=== PATIENT | female | born 1955 | race Hispanic/Latino ===

== ENCOUNTER 2020-08-08 16:49 | Emergency (ER) | payer OTHER ==
[2020-08-08] MEDS ORDERED: methylPREDNISolone Sod Succ/PF 125 MG/2 ML VIAL ONE (17:44)
[2020-08-08] MEDS ORDERED: Famotidine/PF 20 mg/2ml Vial ONE (17:44)
[2020-08-08] MEDS ORDERED: diphenhydrAMINE 50 MG/ML VIAL ONE (17:44)
[2020-08-08] MEDS ORDERED: Morphine 4 MG/ML VIAL ONE (18:17)
[2020-08-08] MEDS ORDERED: Ondansetron PF 4 MG/2 ML Vial ONE (18:17)
[2020-08-08 18:48] LABS: #Basophils 0.1 thou/uL (0.0-0.2); #Lymphocytes 2.1 thou/uL (1.20-3.40); #Monocytes 0.7 thou/uL (0.11-0.59); #Neutrophils 8.5 thou/uL (1.40-6.50); %Basophils 0.8 % (0.0-1.0); %Eosinophils 0.3 % (0.0-10.0); %Lymphocytes 18.4 % (21.0-51.0); %Monocytes 6.5 % (0.0-10.0); %Neutrophils 74.1 % (42.0-75.0); Hemoglobin 13.7 g/dL (12.0-16.0); Mean Corpuscular HGB CONC 34.3 g/dL (32.0-36.0); Mean Corpuscular Hemoglobin 30.4 pg (27.0-31.0); Mean Corpuscular Volume 88.7 fL (78.0-98.0); Mean Platelet Volume 7.8 fL (7.4-10.4); Platelet Count 247 thou/uL (130-400); RBC Distribution Width 12.7 % (11.5-14.5); Red Blood Cell (RBC) Count 4.51 mill/uL (4.20-5.40); White Blood Cell (WBC) Count 11.5 thou/uL (4.8-10.8)
[2020-08-08] MEDS ORDERED: Ketorolac Tromethamine 30 MG/ML VIAL ONE (19:09)
[2020-08-08] MEDS ORDERED: HYDROmorphone 0.5 MG/0.5 ML SYRINGE ONE (19:09)
[2020-08-08 19:10] LABS: Bilirubin Negative (Negative); Blood, Urine Negative (Negative); Clarity Clear (Clear); Glucose, Urine (Dipstick) Greater than 1000 mg/dL (Negative); Ketone, Urine 10 mg/dL (Negative); Leukocyte Negative Leu/uL (Negative); Nitrite Negative (Negative); Protein, Urine (Dipstick) Negative (Neg-Trace); Specific Gravity, Urine 1.016 (1.002-1.036); Urobilinogen Normal mg/dL (Less than 2); pH, Urine 6.5 (5.0-9.0)
[2020-08-08 19:10] LABS: ALT (SGPT) 31 U/L (8-55); AST (SGOT) 34 U/L (5-34); Alkaline Phosphatase 99 U/L (40-110); Anion Gap 17 mmol/L (10-20); BUN (Urea Nitrogen) 11 mg/dL (9.8-20.1); Bilirubin, Total 0.5 mg/dL (0.2-1.2); Calc. Creatinine Clearance 0 mL/min (70-130); Calcium 9.3 mg/dL (7.8-10.44); Carbon Dioxide 21 mmol/L (23-31); Chloride 102 mmol/L (98-107); Globulin 3.1 g/dL (2.4-3.5); Glucose 283 mg/dL (80-115); Potassium 4.1 mmol/L (3.5-5.1); Protein, Total 7.1 g/dL (6.0-8.3); Sodium 136 mmol/L (136-145)
--- NOTE | 2020-08-08 20:20 | CT ---
HEAD CT WITHOUT CONTRAST: 08/08/30 COMPARISON: None. HISTORY: Injury, trauma, pain. TECHNIQUE: Axial CT imaging at 5 mm intervals from vertex through skull base without contrast. FINDINGS: The visualized paranasal sinuses and mastoid air cells are well aerated. No displaced calvarial fract ure. No intracranial hemorrhage, midline shift, mass effect, or ventricular enlargement. IMPRESSION: No intracranial hemorrhage. POS: ANNETTA
--- NOTE | 2020-08-08 21:06 | CT ---
CERVICAL SPINE CT WITHOUT CONTRAST: 08/08/20 COMPARISON: None. HISTORY: Injury, trauma, pain. TECHNIQUE: Axial CT imaging at 2.5 mm intervals through the cervical spine with coronal and sagittal reformatted imaging. FINDINGS: There are moderate degenerative changes at the atlantoaxial interspace. The C1 ring, occipital condyl es, dens, and C1-2 articulation appear unremarkable. The visualized lung apices are unremarkable. Multilevel disc space narrowing, degenerative end plate change and anterior osteophyte formation note d, most prominent at C4-5, C6-7, C7-T1. Left sided facet and uncovertebral osteophyte formation prese nt at C2-3. Mild bilateral uncovertebral osteophyte formation at C4-5 and C5-6. Left sided uncoverteb ral osteophyte formation at C6-7. No acute fracture or dislocation. IMPRESSION: Multilevel cervical spine degenerative change. No acute fracture or dislocation. POS: ANNETTA
--- NOTE | 2020-08-08 21:31 | CT ---
CT CHEST, ABDOMEN AND PELVIS WITHOUT IV CONTRAST: 08/08/20 PROVIDED CLINICAL HISTORY: Trauma. FINDINGS: The heart, pericardium and great vessels are suboptimally evaluated and in the absence of IV contrast material, particularly regarding traumatic abnormality. The lungs are free of significant opacity. T here is no pleural fluid or pneumothorax apparent. There is stable noncalcified 6-7 mm left lower lo be pulmonary nodule, unchanged with respect to 08/18/18. There is reticulation of the subcutaneous graciela pose layer at superficial aspects of the cranial aspects of both breasts as well as in the presternal region inferiorly. There is no evidence for rib, rib cartilage or sternal fracture. Vascular calcif ication is seen. The solid abdominal organs are suboptimally evaluated in the absence of IV contrast, particularly for traumatic abnormality. Given this limitation, there is no evidence for an acute abnormality. There i s a stable left hepatic lobe hypodense as is likely a cyst. There is no bowel dilatation, intra-abdominal fat stranding, free fluid, or free air apparent. There is reticulation of the subcutaneous adipose layer of the right anterior abdominal wall. There is no e vidence for concerning lytic or blastic bony lesion. No evidence for traumatic abnormality. Prominent disc degenerative changes are seen at L2-3. Lumbar and thoracic coronal and sagittal reconstruction s demonstrates normal signal alignment and maintenance of vertebral body heights. IMPRESSION: 1. Reticulation of the anterior chest and abdomen subcutaneous adipose layer of the anterior favi[address] st and abdomen, presumably bruising/edema. There is no evidence for circumscribed fluid collections t o suggest hematoma or evidence or associated fracture. 2. Limited evaluation of the vasculature and solid organs in the absence of IV contrast, without evidence for an acute process. POS: SCOTT
== END 2020-08-08 19:40 | disposition home or self-care (01) ==
LOC: ERS 16:49
DX: S20.213A Contusion of bilateral front wall of thorax, initial encounter (principal); K21.9 Gastro-esophageal reflux disease without esophagitis; E11.9 Type 2 diabetes mellitus without complications; I10 Essential (primary) hypertension; Z87.891 Personal history of nicotine dependence; W55.12XA Struck by horse, initial encounter
CPT/HCPCS: 36415; 70450; 71250; 72125; 74177; 80053; 81003; 85025; 93005; 96374; 96375; J1170; J1200; J1885; J2270; J2405; J2930; S0028

== ENCOUNTER 2021-02-12 12:27 | Emergency (ER) | payer OTHER | END 2021-02-12 16:41 | disposition home or self-care (01) | LOC: ERS 12:27 | DX: H01.002 Unspecified blepharitis right lower eyelid (principal) | CPT/HCPCS: 99283 ==

== ENCOUNTER 2024-02-08 19:23 | Inpatient (IN) | payer OTHER ==
[2024-02-08 19:52] LABS: #Basophils Less than 0.03 10x3/uL (0.0-0.2); #Eosinphils Less than 0.03 10x3/uL (0.0-0.7); %Basophils 0.2 % (0.0-1.0); %Lymphocytes 14.1 % (21.0-51.0); %Monocytes 6.4 % (0.0-10.0); %Neutrophils 78.9 % (42.0-75.0); Hematocrit 37.9 % (36.0-47.0); Mean Corpuscular HGB CONC 34.3 g/dL (32.0-36.0); Mean Corpuscular Hemoglobin 30.7 pg (27.0-31.0); Mean Corpuscular Volume 89.4 fL (78.0-98.0); Mean Platelet Volume 10.3 fL (7.4-10.4); Platelet Count 197 10x3/uL (130-400); RBC Distribution Width 14.5 % (11.5-14.5); Red Blood Cell (RBC) Count 4.24 mill/uL (4.20-5.40)
[2024-02-08] MEDS ORDERED: Ondansetron PF 4 MG/2 ML Vial ONE (20:02)
[2024-02-08] MEDS ORDERED: Morphine 4 MG/ML VIAL ONE (20:02)
[2024-02-08 20:10] LABS: ALT (SGPT) 9 U/L (8-55); AST (SGOT) 11 U/L (5-34); Albumin 3.5 g/dL (3.4-4.8); Alkaline Phosphatase 54 U/L (40-110); Anion Gap 19 mmol/L (10-20); BUN (Urea Nitrogen) 11 mg/dL (9.8-20.1); Bilirubin, Total 0.5 mg/dL (0.2-1.2); Calc. Creatinine Clearance 0 mL/min (70-130); Calcium 9.3 mg/dL (7.8-10.44); Carbon Dioxide 17 mmol/L (23-31); Chloride 108 mmol/L (98-107); Estimated GFR 94; Globulin 2.5 g/dL (2.4-3.5); Glucose 117 mg/dL (80-115); Lipase 31 U/L (8-78); Magnesium 2.1 mg/dL (1.6-2.6); Potassium 3.8 mmol/L (3.5-5.1); Sodium 140 mmol/L (136-145)
[2024-02-08] MEDS ORDERED: Acetaminophen 325 MG TAB PO PRN (23:09)
[2024-02-08] MEDS ORDERED: Acetaminophen 650 MG Suppository PR PRN (23:09)
[2024-02-08] MEDS ORDERED: Ondansetron ODT 4 MG TAB PO PRN (23:09)
[2024-02-08 23:54] VITALS: BMI 26.9
[2024-02-09] MEDS: Dextrose 5%-Lactated Ringers 1,000 ML IV SCH (00:02)
[2024-02-09] MEDS: Morphine 2 MG/ML VIAL SLOW IVP PRN (00:02)
[2024-02-09 05:40] LABS: #Basophils Less than 0.03 10x3/uL (0.0-0.2); #Eosinphils Less than 0.03 10x3/uL (0.0-0.7); %Basophils 0.3 % (0.0-1.0); %Lymphocytes 29.9 % (21.0-51.0); %Monocytes 7.8 % (0.0-10.0); %Neutrophils 61.8 % (42.0-75.0); Hematocrit 37.4 % (36.0-47.0); Hemoglobin 12.5 g/dL (12.0-16.0); Mean Corpuscular HGB CONC 33.4 g/dL (32.0-36.0); Mean Corpuscular Hemoglobin 29.6 pg (27.0-31.0); Mean Corpuscular Volume 88.6 fL (78.0-98.0); Mean Platelet Volume 10.7 fL (7.4-10.4); Platelet Count 214 10x3/uL (130-400); RBC Distribution Width 14.4 % (11.5-14.5); Red Blood Cell (RBC) Count 4.22 mill/uL (4.20-5.40)
[2024-02-09 05:55] LABS: Anion Gap 18 mmol/L (10-20); BUN (Urea Nitrogen) 9 mg/dL (9.8-20.1); Calc. Creatinine Clearance 83 mL/min (70-130); Calcium 9.8 mg/dL (7.8-10.44); Carbon Dioxide 19 mmol/L (23-31); Chloride 107 mmol/L (98-107); Estimated GFR 91; Glucose 147 mg/dL (80-115); Sodium 140 mmol/L (136-145)
[2024-02-09] MEDS ORDERED: Glucagon 1 MG/ML KIT IM PRN ×2 (05:59→18:00)
[2024-02-09] MEDS ORDERED: Dextrose 50% Abboject 50 ML SYRINGE SLOW IVP PRN ×2 (05:59→18:00)
[2024-02-09] MEDS ORDERED: Dextrose 5% in Water 1,000 ML IV PRN ×2 (05:59→18:00)
[2024-02-09] MEDS: Famotidine 20 MG TAB PO SCH (07:47)
[2024-02-09] MEDS: Famotidine/PF 20 mg/2ml Vial SLOW IVP SCH (07:53)
[2024-02-10 06:14] LABS: #Basophils Less than 0.03 10x3/uL (0.0-0.2); #Eosinphils Less than 0.03 10x3/uL (0.0-0.7); %Basophils 0.2 % (0.0-1.0); %Lymphocytes 28.1 % (21.0-51.0); %Monocytes 9.4 % (0.0-10.0); Hematocrit 35.1 % (36.0-47.0); Hemoglobin 11.7 g/dL (12.0-16.0); Mean Corpuscular HGB CONC 33.3 g/dL (32.0-36.0); Mean Corpuscular Hemoglobin 30.3 pg (27.0-31.0); Mean Corpuscular Volume 90.9 fL (78.0-98.0); Mean Platelet Volume 10.5 fL (7.4-10.4); Platelet Count 188 10x3/uL (130-400); RBC Distribution Width 14.3 % (11.5-14.5); Red Blood Cell (RBC) Count 3.86 mill/uL (4.20-5.40)
[2024-02-10 06:32] LABS: Anion Gap 11 mmol/L (10-20); BUN (Urea Nitrogen) Less than 4 mg/dL (9.8-20.1); Calc. Creatinine Clearance 97 mL/min (70-130); Calcium 9.4 mg/dL (7.8-10.44); Carbon Dioxide 24 mmol/L (23-31); Chloride 106 mmol/L (98-107); Estimated GFR 98; Glucose 130 mg/dL (80-115); Potassium 3.1 mmol/L (3.5-5.1); Sodium 138 mmol/L (136-145)
[2024-02-11] MEDS: Alogliptin 25 MG TAB PO SCH (08:10)
[2024-02-11] MEDS: FLUoxetine HCl 20 MG CAP PO SCH (08:10)
[2024-02-11] MEDS: Cholecalciferol 1,000 UNITS (25 MCG) TAB PO SCH (08:10)
[2024-02-11] MEDS: Metoprolol Tartrate 25 MG TAB PO SCH (08:11)
[2024-02-11] MEDS: Lisinopril 5 MG TAB PO SCH (08:11)
[2024-02-11] MEDS: metFORMIN 500 MG TAB PO SCH (08:11)
[2024-02-11] MEDS: Ondansetron PF 4 MG/2 ML Vial IVP PRN (10:07)
[2024-02-11 10:13] LABS: Anion Gap 16 mmol/L (10-20); BUN (Urea Nitrogen) Less than 4 mg/dL (9.8-20.1); Calc. Creatinine Clearance 96 mL/min (70-130); Carbon Dioxide 22 mmol/L (23-31); Chloride 106 mmol/L (98-107); Estimated GFR 98; Glucose 183 mg/dL (80-115); Potassium 3.6 mmol/L (3.5-5.1); Sodium 140 mmol/L (136-145)
[2024-02-11] MEDS: Insulin Lispro 100 UNIT/ML 10 ML VIAL SC PRN (13:16)
[2024-02-12 06:18] LABS: Anion Gap 13 mmol/L (10-20); BUN (Urea Nitrogen) 6 mg/dL (9.8-20.1); Calc. Creatinine Clearance 101 mL/min (70-130); Calcium 9.7 mg/dL (7.8-10.44); Carbon Dioxide 24 mmol/L (23-31); Chloride 109 mmol/L (98-107); Estimated GFR 99; Glucose 130 mg/dL (80-115); Potassium 3.2 mmol/L (3.5-5.1); Sodium 143 mmol/L (136-145)
[2024-02-12] MEDS: Potassium Chloride 20 MEQ TAB PO SCH (08:41)
[2024-02-12] MEDS: Polyethylene Glycol 3350 17 GM Packet PO SCH (08:44)
[2024-02-12] MEDS: Lactulose 20 GM (30 mL) UDCUP PO SCH (08:45)
[2024-02-12 14:35] VITALS: BP 121/76; TEMP 97.6
== END 2024-02-12 14:38 | disposition home or self-care (01) | DRG 389 ==
LOC: ERS 19:23 → T4-B 21:49 → OBSVTOIN 02-09 16:19
PROVIDERS: ADMIT Student in an Organized Health Care Education/Training Program; ATTEND Family Medicine
PROC: 0D9670Z Drainage of Stomach with Drainage Device, Via Natural or Artificial Opening (ICD-10-PCS; principal; 2024-02-09)
DX: K56.600 Partial intestinal obstruction, unspecified as to cause (principal); E87.20 Acidosis, unspecified; E11.9 Type 2 diabetes mellitus without complications; I10 Essential (primary) hypertension; Z88.8 Allergy status to other drugs, medicaments and biological substances; Z90.49 Acquired absence of other specified parts of digestive tract; Z90.710 Acquired absence of both cervix and uterus; Z98.890 Other specified postprocedural states
CPT/HCPCS: 36415; 36416; 43753; 74176; 80048; 80053; 83605; 83690; 83735; 85025; 96374; 96375; J1815; J2270; J2272; J2405; S0028